=== PATIENT | male | born 1965 | race Caucasian/White ===

== ENCOUNTER 2018-01-31 15:51 | Emergency (ER) | payer BC, OTHER ==
[~2018-01-31] VITALS: Ht 175.3 cm; Wt 131.5 kg
[2018-01-31] MEDS ORDERED: LACTATED RINGERS 1,000 ML IV ONE (18:20)
[2018-01-31] MEDS ORDERED: fentaNYL INJECTION 100 MCG/2 ML AMP IVP ONE (18:30)
[2018-01-31] MEDS ORDERED: RT-ALBUTEROL/IPRATROPIUM 3 ML (DUONEB) VIAL INH ONE (18:30)
[2018-01-31 18:32] LABS: BASOPHILS % (AUTO) 0 % (0-10); EOSINOPHILS # (AUTO) 0.1 10^3/uL (0.0-0.3); EOSINOPHILS % (AUTO) 1 % (0-10); HEMATOCRIT 43 % (40-54); LYMPHOCYTES # (AUTO) 0.9 X 10^3 (1.0-4.0); LYMPHOCYTES % (AUTO) 11 % (12-44); MEAN CORPUSCULAR HEMOGLOBIN 30 PG (25-34); MEAN CORPUSCULAR HGB CONC 35 G/DL (32-36); MEAN CORPUSCULAR VOLUME 86 FL (80-99); MEAN PLATELET VOLUME 12.6 FL (7.4-10.4); MONOCYTES # (AUTO) 1.4 X 10^3 (0.0-1.0); MONOCYTES % (AUTO) 19 % (0-12); NEUTROPHILS # (AUTO) 5.3 X 10^3 (1.8-7.8); NEUTROPHILS % (AUTO) 69 % (42-75); PLATELET COUNT 151 10^3/uL (130-400); RED BLOOD COUNT 5.05 10^6/uL (4.35-5.85); RED CELL DISTRIBUTION WIDTH 13.5 % (10.0-14.5); WHITE BLOOD COUNT 7.7 10^3/uL (4.3-11.0)
[2018-01-31 18:46] LABS: ALANINE AMINOTRANSFERASE 38 U/L (0-55); ALBUMIN 4.5 GM/DL (3.2-4.5); ALKALINE PHOSPHATASE 59 U/L (40-136); BILIRUBIN,TOTAL 1.2 MG/DL (0.1-1.0); BUN/CREATININE RATIO 12; CALCIUM 8.8 MG/DL (8.5-10.1); CARBON DIOXIDE 26 MMOL/L (21-32); CHLORIDE 98 MMOL/L (98-107); CREATININE SERUM 0.75 MG/DL (0.60-1.30); GFR ESTIMATED > 60; GLUCOSE 106 MG/DL (70-105); LIPASE 27 U/L (8-78); POTASSIUM 3.7 MMOL/L (3.6-5.0); SODIUM 136 MMOL/L (135-145); TOTAL PROTEIN 7.1 GM/DL (6.4-8.2)
--- NOTE | 2018-01-31 19:03 | ED Abdominal Pain ---
General Chief Complaint: Chest Wall/Rib Pain Stated Complaint: ABD PAIN Nursing Triage Note: PT WAS SENT TO ED FROM [facility] BY EMS WITH C/O LUQ/CHEST WALL PAIN. HE REPORTS COUGH/COLD FLU SYMPTOMS FOR APPROX 1 WEEK. HE REPORTS PAIN STARTED AFTER COUGHING. PAIN IS WORSE WITH MOVEMENT. PT WAS GIVEN 324 MG ASA PER URGENT CARE. Sepsis Screen: No Definite Risk Source of Information: Patient Exam Limitations: No Limitations History of Present Illness Date Seen by Provider: Jan 31, 2018 Time Seen by Provider: 18:30 Initial Comments Patient presents to the ER by private conveyance from urgent care with a chief complaint he is having some left upper quadrant/chest wall pain. He says he has had a cough and cold for last week or 2 and thought he was getting over that and he thought maybe he pulled a muscle but the pain was very severe. He has not taken anything for it. They russell some lab at urgent care but he doesn't know if they didn't anything with it and they did an EKG and told him it was okay but he should go to the ER for further evaluation. He has no known coronary artery disease. He does not take any medications. Does not have a history of COPD. He is not feeling any wheezing or shortness of breath nor fevers chills nausea or vomiting. He's had no diarrhea. He says his pulled muscle similar to this before and felt in similar place is however never this severe. He says the pain is made worse by changing position. Allergies and Home Medications Allergies Coded Allergies: Penicillins (Unverified Allergy, Unknown, 01/31/18) Sulfa (Sulfonamide Antibiotics) (Verified Allergy, Unknown, 01/31/18) erythromycin base (Verified Allergy, Unknown, 01/31/18) Patient Home Medication List Home Medication List Reviewed: Yes Review of Systems Constitutional: No chills, No diaphoresis, No fever, No malaise EENTM: No Blurred Vision, No Double Vision Respiratory: Cough, Shortness of Air; Denies Wheezing Cardiovascular: See HPI, Chest Pain; Denies Edema, Denies Palpitations, Denies Syncope Gastrointestinal: See HPI; Denies Abdomen Distended; Abdominal Pain; Denies Constipated, Denies Diarrhea, Denies Difficulty Swallowing, Denies Nausea Genitourinary: Denies Burning, Denies Discharge Musculoskeletal: No back pain, No joint pain Skin: No pruritus, No rash Psychiatric/Neurological: Denies Headache, Denies Numbness, Denies Paresthesia Past Aragakh-Axtaws-Dlupsp Hx Patient Social History Alcohol Use: Denies Use Recreational Drug Use: No Smoking Status: Never a Smoker 2nd Hand Smoke Exposure: No Recent Foreign Travel: No Contact w/Someone Who Travel: No Recent Infectious Disease Expo: No Seasonal Allergies Seasonal Allergies: No Past Medical History Surgeries: Yes Adenoidectomy, Orthopedic, Tonsillectomy Physical Exam Vital Signs Vital Signs - First Documented 01/31/18 16:00 Temp 98.4 Pulse 77 Resp 8 B/P (MAP) 184/121 (142) Pulse Ox 97 O2 Delivery Room Air Capillary Refill : Less Than 3 Seconds General Appearance: WD/WN, no apparent distress HEENT: PERRL/EOMI, normal ENT inspection, TMs normal, pharynx normal Neck: non-tender, full range of motion, normal inspection Respiratory: no respiratory distress, no accessory muscle use, decreased breath sounds, wheezing (scant bilateral), other (left lower costal margin anteriorly is exquisitely tender to palpation) Cardiovascular: normal peripheral pulses, regular rate, rhythm, no edema Peripheral Pulses: 2+ Radial Pulses (R), 2+ Radial Pulses (L) Gastrointestinal: normal bowel sounds, soft, guarding (voluntary); No rebound; tenderness (left upper quadrant), other (negative for Thompson sign or McBurney's point tenderness) Extremities: normal range of motion, non-tender, normal capillary refill Neurologic/Psychiatric: alert, normal mood/affect, oriented x 3 Skin: normal color, warm/dry, other (small red dear tick anterior right axilla) Progress/Results/Core Measures Lab Results Laboratory Tests Test 01/31/18 16:00 Range/Units White Blood Count 7.7 4.3-11.0 10^3/uL Red Blood Count 5.05 4.35-5.85 10^6/uL Hemoglobin 15.0 13.3-17.7 G/DL Hematocrit 43 40-54 % Mean Corpuscular Volume 86 80-99 FL Mean Corpuscular Hemoglobin 30 25-34 PG Mean Corpuscular Hemoglobin Concent 35 32-36 G/DL Red Cell Distribution Width 13.5 10.0-14.5 % Platelet Count 151 130-400 10^3/uL Mean Platelet Volume 12.6 H 7.4-10.4 FL Neutrophils (%) (Auto) 69 42-75 % Lymphocytes (%) (Auto) 11 L 12-44 % Monocytes (%) (Auto) 19 H 0-12 % Eosinophils (%) (Auto) 1 0-10 % Basophils (%) (Auto) 0 0-10 % Neutrophils # (Auto) 5.3 1.8-7.8 X 10^3 Lymphocytes # (Auto) 0.9 L 1.0-4.0 X 10^3 Monocytes # (Auto) 1.4 H 0.0-1.0 X 10^3 Eosinophils # (Auto) 0.1 0.0-0.3 10^3/uL Basophils # (Auto) 0.0 0.0-0.1 10^3/uL Neutrophils % (Manual) 68 % Lymphocytes % (Manual) 7 % Monocytes % (Manual) 9 % Eosinophils % (Manual) 1 % Basophils % (Manual) 0 % Band Neutrophils 6 % Reactive Lymphocytes 9 % Blood Morphology Comment NORMAL Sodium Level 136 135-145 MMOL/L Potassium Level 3.7 3.6-5.0 MMOL/L Chloride Level 98 98-107 MMOL/L Carbon Dioxide Level 26 21-32 MMOL/L Anion Gap 12 5-14 MMOL/L Blood Urea Nitrogen 9 7-18 MG/DL Creatinine 0.75 0.60-1.30 MG/DL Estimat Glomerular Filtration Rate > 60 BUN/Creatinine Ratio 12 Glucose Level 106 H 70-105 MG/DL Calcium Level 8.8 8.5-10.1 MG/DL Total Bilirubin 1.2 H 0.1-1.0 MG/DL Aspartate Amino Transf (AST/SGOT) 24 5-34 U/L Alanine Aminotransferase (ALT/SGPT) 38 0-55 U/L Alkaline Phosphatase 59 40-136 U/L Troponin I < 0.30 <0.30 NG/ML Total Protein 7.1 6.4-8.2 GM/DL Albumin 4.5 3.2-4.5 GM/DL Lipase 27 8-78 U/L My Orders Orders - LIVE COLLIER Ct Abdomen/Pelvis W (01/31/18 18:20) Saline Lock/Iv-Start (01/31/18 18:20) Cbc With Automated Diff (01/31/18 18:20) Comprehensive Metabolic Panel (01/31/18 18:20) Lipase (01/31/18 18:20) Troponin I (01/31/18 18:20) Albuterol/Ipra Inhalation Soln (Duoneb I (01/31/18 18:30) Lactated Ringers (Lr 1000 Ml Iv Solution (01/31/18 18:20) Svn Small Volume Nebulizer (01/31/18 18:20) Fentanyl Injection (Sublimaze Injection (01/31/18 18:30) Continuous Ekg Monitoring (01/31/18 18:22) Ekg Tracing (01/31/18 18:22) Manual Differential (01/31/18 16:00) Iohexol Injection (Omnipaque 350 Mg/Ml 1 (01/31/18 19:15) Sodium Chloride Flush (Catheter Flush Sy (01/31/18 19:15) Ns (Ivpb) (Sodium Chloride 0.9%) (01/31/18 19:15) Pharmacy Communication (Pharmacy Communi (01/31/18 19:05) Ketorolac Injection (Toradol Injection) (01/31/18 19:30) Chest 1 View, Ap/Pa Only (01/31/18 20:12) Medications Given in ED Current Medications Medications Dose Ordered Sig/Jovani Route Start Time Stop Time Status Last Admin Dose Admin Albuterol/ Ipratropium 3 ml ONCE ONCE INH 01/31/18 18:30 01/31/18 18:31 DC 01/31/18 18:37 3 ML Fentanyl Citrate 50 mcg ONCE ONCE IVP 01/31/18 18:30 01/31/18 18:31 DC 01/31/18 18:30 50 MCG Iohexol 100 ml ONCE ONCE IV 01/31/18 19:15 01/31/18 19:16 DC 01/31/18 19:28 100 ML Ketorolac Tromethamine 15 mg ONCE ONCE IVP 01/31/18 19:30 01/31/18 19:31 DC 01/31/18 19:55 15 MG Lactated Ringer's 1,000 ml @ 0 mls/hr Q0M ONCE IV 01/31/18 18:20 01/31/18 18:23 DC 01/31/18 18:30 0 MLS/HR Sodium Chloride 10 ml NEEDED PRN IV 4/29/18 19:15 01/31/18 21:55 DC 01/31/18 19:29 10 ML Sodium Chloride 250 ml ONCE ONCE IV 01/31/18 19:15 01/31/18 19:16 DC 01/31/18 19:28 80 ML Vital Signs/I&O 01/31/18 01/31/18 01/31/18 16:00 18:38 21:50 Temp 98.4 98.4 Pulse 77 86 Resp 8 16 B/P (MAP) 184/121 (142) 126/83 (142) Pulse Ox 97 93 96 O2 Delivery Room Air Room Air Room Air Blood Pressure Mean: 142 Progress Note : Time: 19:08 Progress Note Patient's pain seems to be abdominal wall located versus chest wall. However because he said tender cannot exclude an intra-abdominal process. We'll obtain chest x-ray repeat an EKG and a CT of the abdomen to rule out intra-abdominal pathology. Diverticulitis, possible. He did have a bowel movement today that was normal formed so obstruction is less likely. 5: Left voicemail with [facility] 1999: Left voicemail with [facility] 2015: SUSAN from [facility] called back and we will page Dr. Gonzales, internal medicine 2024: Dr. Gonzales from [facility] called back and says they do not have interventional radiology on-call tonight otherwise he would be happy to take the patient. 2026: Called [facility] to ask if they have interventional radiology available tonight. They will call me back. 2029: [facility] has no IR 2030: Cory from [facility] tester electronic scale 2049: Dr Harris, IM: Ok to accept the PT. Initial ECG Impression Date: Jan 31, 2018 Initial ECG Impression Time: 14:54 Initial ECG Rate: 83 Initial ECG Rhythm: Normal Sinus Initial ECG Intervals: Normal Initial ECG Impression: Normal, Nonspecific Changes (LVH) Initial ECG Comparisson: No Previous ECG Available Comment Evidence for left ventricular hypertrophy but no significant ST-T wave elevation or depression. The minimal elevation in anterior leads is more due to early re-polarization phenomena. EKG : EKG Time: 18:32 Rate: 82 Rhythm: Normal Sinus Intervals: Normal ECG Comparisson: Unchanged ECG Impression: Normal, Nonspecific Changes Comment No T-wave elevation or depression significant. There is minimal early repolarization pattern seen in the anterior leads. Left ventricular hypertrophy evident. Diagonstic Imaging: Xray Plain Films/CT/US/NM/MRI: chest (1v) Comments NAME: VERONICA MAZARIEGOS [facility] REC#: [id number] PHYSICIAN: LIVE COLLIER MD CC: PHIL COBB MD; LIVE COLLIER Page 1 of 1 RADIOLOGY REPORT VIA [place], [place] CC: PHIL COBB MD; LIVE COLLIER Page 1 of 1 RADIOLOGY REPORT NAME: VERONICA MAZARIEGOS [facility] REC#: [id number] PT STATUS: REG ER : 1965 PHYSICIAN: LIVE COLLIER MD ADMIT DATE: 01/31/18/ER Signed Date of Exam: 01/31/18 CHEST 1 VIEW, AP/PA ONLY INDICATION: Shortness of breath. FINDINGS: There is cardiomegaly. Lungs are clear. There is no pleural effusion or pneumothorax. Mediastinum is unremarkable. IMPRESSION: No acute cardiopulmonary abnormality. Cardiomegaly. Dictated by: Dictated on workstation # [id number] Dict: 01/31/182024 Trans: 01/31/182027 Interpreted by: PHIL COBB MD Electronically signed by: PHIL COBB MD 01/31/182027 Reviewed: Reviewed by Me Diagonstic Imaging: CT Plain Films/CT/US/NM/MRI: abdomen, pelvis Comments %(RAD)RES..mtdd.print.filter("cj")VIA [facility] %(RAD)RES..mtdd.print.filter("cj")[place], [place] NAME: VERONICA MAZARIEGOS [facility] REC#: [id number] PT STATUS: REG ER : 1965 PHYSICIAN: LIVE COLLIER MD ADMIT DATE: 01/31/18/ER Draft Date of Exam:01/31/18 CT ABDOMEN/PELVIS W PROCEDURE: CT abdomen and pelvis with contrast. TECHNIQUE: Multiple contiguous axial images were obtained through the abdomen and pelvis after administration of intravenous contrast. INDICATION: Left upper quadrant pain. FINDINGS: The heart size is normal. There is minimal scarring in the left lung base. There is fatty infiltration of the liver. Gallbladder is unremarkable. There is no biliary ductal dilatation. Spleen is normal. The pancreas, adrenal glands and kidneys are unremarkable. The abdominal aorta is nonaneurysmal. The appendix is normal. Bowel gas pattern is nonspecific. Bladder is normal. There is no pelvic mass or adenopathy. There is a large left rectus sheath hematoma with active extravasation. The osseous structures are unremarkable. IMPRESSION: 1. Large left rectus sheath hematoma with active extravasation. Findings conveyed directly to Dr. Collier in the ER. 2. No othe Oacute abnormality in the abdomen or pelvis. Dictated on workstation # [id number] Dict: 01/31/181933 Trans: 01/31/181946 PJE [id number] Interpreted by: PHIL COBB MD Electronically signed by: Reviewed: Reviewed by Me, Discussed w/Radiologist Departure Impression Primary Impression: Rectus sheath hematoma Qualified Codes: S30.1XXA - Contusion of abdominal wall, initial encounter Additional Impression: Bronchitis Disposition: XFER SHT-TRM HOSP Condition: Stable Transfer Time Spoke to Accepting Phy: 20:50 Transfer Progress Notes [facility] 2030: Spoke with Cory triage nurse. 2049: Spoke with Dr. Harris, internal medicine except the patient. 2100: Room number [id number] assigned. [facility] dispatched and balance. 2149 [facility] took the patient to [facility]. Transfer Time: 21:50 Transfer Facility: [facility] Method of Transfer: EMS (als) Departure-Patient Inst. Referrals: NO,LOCAL PHYSICIAN (PCP/Family) Primary Care Physician LIVE COLLIER Jan 31, 2018 19:03
[2018-01-31] MEDS ORDERED: IOHEXOL 350 MG/ML 100 ML (OMNIPAQUE 350) VIAL IV ONE (19:15)
[2018-01-31] MEDS ORDERED: NS 250 ML (IVPB) BAG IV ONE (19:15)
[2018-01-31] MEDS ORDERED: CATHETER FLUSH 10 ML SYR IV PRN (19:15)
[2018-01-31] MEDS ORDERED: KETOROLAC 30 MG/ML VIAL IVP ONE (19:30)
--- NOTE | 2018-01-31 19:47 | Diagnostic Imaging Report ---
PROCEDURE: CT abdomen and pelvis with contrast. TECHNIQUE: Multiple contiguous axial images were obtained through the abdomen and pelvis after administration of intravenous contrast. INDICATION: Left upper quadrant pain. FINDINGS: The heart size is normal. There is minimal scarring in the left lung base. There is fatty infiltration of the liver. Gallbladder is unremarkable. There is no biliary ductal dilatation. Spleen is normal. The pancreas, adrenal glands and kidneys are unremarkable. The abdominal aorta is nonaneurysmal. The appendix is normal. Bowel gas pattern is nonspecific. Bladder is normal. There is no pelvic mass or adenopathy. There is a large left rectus sheath hematoma with active extravasation. The osseous structures are unremarkable. IMPRESSION: 1. Large left rectus sheath hematoma with active extravasation. Findings conveyed directly to Dr. Collier in the ER. 2. No other acute abnormality in the abdomen or pelvis. Dictated by: Dictated on workstation # [id number]
[2018-01-31 20:09] LABS: BAND NEUTROPHILS 6 %; BASOPHILS % (MANUAL) 0 %; EOSINOPHILS % (MANUAL) 1 %; LYMPHOCYTES % (MANUAL) 7 %; MONOCYTES % (MANUAL) 9 %; NEUTROPHILS % (MANUAL) 68 %; REACTIVE LYMPHOCYTES 9 %
[2018-01-31 20:10] LABS: RBC MORPH NORMAL
--- NOTE | 2018-01-31 20:28 | Diagnostic Imaging Report ---
INDICATION: Shortness of breath. FINDINGS: There is cardiomegaly. Lungs are clear. There is no pleural effusion or pneumothorax. Mediastinum is unremarkable. IMPRESSION: No acute cardiopulmonary abnormality. Cardiomegaly. Dictated by: Dictated on workstation # [id number]
[2018-01-31 21:50] VITALS: BP 126/83
== END 2018-01-31 21:52 | disposition short-term general hospital (02) ==
LOC: EDUNIT# 15:51 → ER 15:53
DX: S30.1XXA Contusion of abdominal wall, initial encounter (principal); J40 Bronchitis, not specified as acute or chronic; Z88.0 Allergy status to penicillin; Z88.2 Allergy status to sulfonamides; Z88.1 Allergy status to other antibiotic agents; Z90.89 Acquired absence of other organs; X50.0XXA Overexertion from strenuous movement or load, initial encounter
CPT/HCPCS: 36415; 71045; 74177; 80053; 83690; 84484; 85007; 85027; 93005; 94640; 96361; 96374; 96375

== ENCOUNTER 2018-02-02 16:07 | Emergency (ER) | payer BC ==
[~2018-02-02] VITALS: Ht 175.3 cm; Wt 132.4 kg
[2018-02-02] MEDS ORDERED: RT-ALBUTEROL/IPRATROPIUM 3 ML (DUONEB) VIAL INH ONE (17:00)
[2018-02-02] MEDS ORDERED: fentaNYL INJECTION 100 MCG/2 ML AMP IVP ONE (17:00)
[2018-02-02 17:08] LABS: BASOPHILS % (AUTO) 0 % (0-10); EOSINOPHILS % (AUTO) 0 % (0-10); HEMATOCRIT 31 % (40-54); HEMOGLOBIN 10.5 G/DL (13.3-17.7); LYMPHOCYTES # (AUTO) 0.8 X 10^3 (1.0-4.0); LYMPHOCYTES % (AUTO) 8 % (12-44); MEAN CORPUSCULAR HEMOGLOBIN 30 PG (25-34); MEAN CORPUSCULAR HGB CONC 34 G/DL (32-36); MEAN CORPUSCULAR VOLUME 87 FL (80-99); MONOCYTES # (AUTO) 1.6 X 10^3 (0.0-1.0); MONOCYTES % (AUTO) 16 % (0-12); NEUTROPHILS # (AUTO) 7.4 X 10^3 (1.8-7.8); NEUTROPHILS % (AUTO) 75 % (42-75); PLATELET COUNT 159 10^3/uL (130-400); RED BLOOD COUNT 3.55 10^6/uL (4.35-5.85); RED CELL DISTRIBUTION WIDTH 13.7 % (10.0-14.5); WHITE BLOOD COUNT 9.9 10^3/uL (4.3-11.0)
[2018-02-02 17:21] LABS: ALANINE AMINOTRANSFERASE 32 U/L (0-55); ALBUMIN 4.3 GM/DL (3.2-4.5); ALKALINE PHOSPHATASE 49 U/L (40-136); BILIRUBIN,TOTAL 1.1 MG/DL (0.1-1.0); BUN/CREATININE RATIO 17; CARBON DIOXIDE 25 MMOL/L (21-32); CHLORIDE 97 MMOL/L (98-107); GFR ESTIMATED > 60; GLUCOSE 121 MG/DL (70-105); POTASSIUM 3.7 MMOL/L (3.6-5.0); SODIUM 133 MMOL/L (135-145); TOTAL PROTEIN 6.9 GM/DL (6.4-8.2)
--- NOTE | 2018-02-02 17:36 | Diagnostic Imaging Report ---
INDICATION: Shortness of air and severe cough. TIME OF EXAM: 5:45 PM Correlation is made with prior study from 01/31/2018. FINDINGS: Heart size is stable. There has been development of some patchy areas of increased parenchymal density in both bases, suggestive of atelectasis or infiltrate. No effusion is seen. No pneumothorax is identified. IMPRESSION: Bibasilar pulmonary infiltrates or atelectasis, new since examination from 2 days earlier. Dictated by: Dictated on workstation # [id number]
[2018-02-02] MEDS ORDERED: NS IV 1000 ML 1,000 ML IV ONE (18:06)
[2018-02-02] MEDS ORDERED: RX-ALBUTEROL INHALER (PROAIR) 8 GM IH STA (18:09)
[2018-02-02] MEDS ORDERED: LEVOFLOXACIN 750 MG/150 ML IV 150 ML IV ONE (18:15)
--- NOTE | 2018-02-02 18:28 | ED General ---
General Chief Complaint: Respiratory Problems Stated Complaint: COUGH/COLD SYMPTOMS Nursing Triage Note: PT CO OF SOA, SEVERE COUGH, HAS BEEN RELEASED FROM [facility] AFTER ABD SURG YESTERDAY. PT DIAPHORETIC. HAS HORRIBLE COUGHING FITS Nursing Sepsis Screen: No Definite Risk Source of Information: Patient, Old Records Exam Limitations: No Limitations History of Present Illness Date Seen by Provider: February 02, 2018 Time Seen by Provider: 16:46 Initial Comments This 52-year-old gentleman presents to the emergency room with complaints of persistent cough and fever. He was seen here January 31 for cough and pain and was found at that time to have a rectus sheath hematoma. He was sent to [facility] where he had an arterial embolism performed to control the bleeding. He returned home today and developed fever. He then went to an urgent care facility and was referred to the ER. He reports persistent cough and some shortness of breath. He is afebrile on assessment. Allergies and Home Medications Allergies Coded Allergies: Penicillins (Unverified Allergy, Unknown, 01/31/18) Sulfa (Sulfonamide Antibiotics) (Verified Allergy, Unknown, 01/31/18) erythromycin base (Verified Allergy, Unknown, 01/31/18) Home Medications Levofloxacin 750 Mg Tablet, 750 MG PO DAILY Prescribed by: ALEX FISHER on 02/02/18 4735 Patient Home Medication List Home Medication List Reviewed: Yes Review of Systems Constitutional: see HPI EENTM: no symptoms reported Respiratory: see HPI Cardiovascular: see HPI Gastrointestinal: see HPI Genitourinary: no symptoms reported Musculoskeletal: see HPI Skin: no symptoms reported Psychiatric/Neurological: No Symptoms Reported Hematologic/Lymphatic: No Symptoms Reported Immunological/Allergic: no symptoms reported Past Xonhdvc-Mojuci-Wauoph Hx Patient Social History Alcohol Use: Denies Use Recreational Drug Use: No Smoking Status: Never a Smoker 2nd Hand Smoke Exposure: No Recent Foreign Travel: No Contact w/Someone Who Travel: No Recent Infectious Disease Expo: No Recent Hopitalizations: Yes (JAMIE) Physical Abuse: No Sexual Abuse: No Seasonal Allergies Seasonal Allergies: No Past Medical History Surgeries: Yes Adenoidectomy, Orthopedic, Tonsillectomy Respiratory: Yes Chronic Bronchitis Cardiac: No Neurological: No Genitourinary: No Gastrointestinal: No Musculoskeletal: No Endocrine: No HEENT: No Cancer: No Nursing Suicide Risk Score: 0 Integumentary: No Physical Exam Vital Signs Vital Signs - First Documented 02/02/18 02/02/18 16:20 17:08 Temp 99.1 Pulse 107 Resp 24 B/P (MAP) 218/109 (145) Pulse Ox 93 O2 Delivery Room Air Capillary Refill : Less Than 3 Seconds General Appearance: WD/WN, Mild Distress, Obese HEENT: PERRL/EOMI, Normal ENT Inspection, Pharynx Normal Neck: Normal Inspection Respiratory: No Accessory Muscle Use, No Respiratory Distress, Decreased Breath Sounds, Wheezing Cardiovascular: No Edema, No Murmur, Tachycardia Gastrointestinal: Normal Bowel Sounds, Soft Extremity: Normal Inspection, No Pedal Edema Neurologic/Psychiatric: Alert, Oriented x3, No Motor/Sensory Deficits, Normal 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/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, 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 Norm as Tested Skin: Normal Color, Warm/Dry Focused Exam Lactate Level 02/02/18 16:40: Lactic Acid Level 1.73 Lactic Acid Level Progress/Results/Core Measures Suspected Sepsis Recent Fever Within 48 Hours: No Infection Criteria Present: None New/Unexplained Altered Menta: No Sepsis Screen: No Definite Risk SIRS Temperature:99.1 Pulse: 107 Respiratory Rate: 24 Laboratory Tests 02/02/18 16:40: White Blood Count 9.9 Blood Pressure 218 /109 Mean: 145 02/02/18 16:40: Lactic Acid Level 1.73 Laboratory Tests 02/02/18 16:40: Creatinine 0.70, Platelet Count 159, Total Bilirubin 1.1H Results/Orders Lab Results Laboratory Tests Test 02/02/18 16:40 Range/Units White Blood Count 9.9 4.3-11.0 10^3/uL Red Blood Count 3.55 L 4.35-5.85 10^6/uL Hemoglobin 10.5 #L 13.3-17.7 G/DL Hematocrit 31 L 40-54 % Mean Corpuscular Volume 87 80-99 FL Mean Corpuscular Hemoglobin 30 25-34 PG Mean Corpuscular Hemoglobin Concent 34 32-36 G/DL Red Cell Distribution Width 13.7 10.0-14.5 % Platelet Count 159 130-400 10^3/uL Mean Platelet Volume 12.0 H 7.4-10.4 FL Neutrophils (%) (Auto) 75 42-75 % Lymphocytes (%) (Auto) 8 L 12-44 % Monocytes (%) (Auto) 16 H 0-12 % Eosinophils (%) (Auto) 0 0-10 % Basophils (%) (Auto) 0 0-10 % Neutrophils # (Auto) 7.4 1.8-7.8 X 10^3 Lymphocytes # (Auto) 0.8 L 1.0-4.0 X 10^3 Monocytes # (Auto) 1.6 H 0.0-1.0 X 10^3 Eosinophils # (Auto) 0.0 0.0-0.3 10^3/uL Basophils # (Auto) 0.0 0.0-0.1 10^3/uL Sodium Level 133 L 135-145 MMOL/L Potassium Level 3.7 3.6-5.0 MMOL/L Chloride Level 97 L 98-107 MMOL/L Carbon Dioxide Level 25 21-32 MMOL/L Anion Gap 11 5-14 MMOL/L Blood Urea Nitrogen 12 7-18 MG/DL Creatinine 0.70 0.60-1.30 MG/DL Estimat Glomerular Filtration Rate > 60 BUN/Creatinine Ratio 17 Glucose Level 121 H 70-105 MG/DL Lactic Acid Level 1.73 0.50-2.00 MMOL/L Calcium Level 9.0 8.5-10.1 MG/DL Total Bilirubin 1.1 H 0.1-1.0 MG/DL Aspartate Amino Transf (AST/SGOT) 32 5-34 U/L Alanine Aminotransferase (ALT/SGPT) 32 0-55 U/L Alkaline Phosphatase 49 40-136 U/L C-Reactive Protein High Sensitivity 13.19 H 0.00-0.50 MG/DL Total Protein 6.9 6.4-8.2 GM/DL Albumin 4.3 3.2-4.5 GM/DL Micro Results Microbiology 02/02/18 Influenza Types A,B Antigen (PIYUSH) - Final, Complete My Orders Orders - ALEX SUTHERLAND MD Cbc With Automated Diff (02/02/18 16:55) Comprehensive Metabolic Panel (02/02/18 16:55) Hs C Reactive Protein (02/02/18 16:55) Influenza A And B Antigens (02/02/18 16:55) Chest Pa/Lat (2 View) (02/02/18 16:55) Saline Lock/Iv-Start (02/02/18 16:55) Albuterol/Ipra Inhalation Soln (Duoneb I (02/02/18 17:00) Fentanyl Injection (Sublimaze Injection (02/02/18 17:00) Blood Culture (02/02/18 17:46) Lactic Acid Analyzer (02/02/18 17:46) Ns Iv 1000 Ml (Sodium Chloride 0.9%) (02/02/18 18:06) Levofloxacin 750 Mg/150 Ml Iv (Levaquin (02/02/18 18:15) Rx-Albuterol Inhaler (Rx-Proair) (02/02/18 18:09) Rt Request For Service (Other) (02/02/18 19:07) Medications Given in ED Vital Signs/I&O 02/02/18 19:22 Pulse 100 Resp 24 B/P (MAP) 165/88 Pulse Ox 99 O2 Delivery Room Air 02/03/18 00:00 Intake Total 1150 ml Balance 1150 ml Capillary Refill : Less Than 3 Seconds Blood Pressure Mean: 145 Progress Note : Progress Note Patient had not been taking his tramadol for pain. He did request treatment for his abdominal wall pain and was given fentanyl. A DuoNeb treatment was also administered. He felt significantly improved with these therapies. Chest x-ray did demonstrate pneumonia. Patient was not hypoxic. He does not smoke and has no underlying respiratory illnesses. I discussed options with him and he would really like to try treatment on an outpatient basis. He is receiving Levaquin by IV route along with a liter of IV fluids. Respiratory therapy provided education on incentive spirometry and inhaler use. He commits to returning to the ER if symptoms worsen. Blood cultures were drawn prior to administration of antibiotics. Albuterol inhaler was dispensed at dismissal. Diagnostic Imaging Diagonstic Imaging: Xray Plain Films/CT/US/NM/MRI: chest Comments Chest x-ray viewed by me and report reviewed. See report below: NAME: VERONICA MAZARIEGOS [facility] REC#: [id number] PT STATUS: REG ER : 1965 PHYSICIAN: ALEX SUTHERLAND MD ADMIT DATE: 02/02/18/ER Draft Date of Exam:02/02/18 CHEST PA/LAT (2 VIEW) INDICATION: Shortness of air and severe cough. TIME OF EXAM: 5:45 PM Correlation is made with prior study from 01/31/2018. FINDINGS: Heart size is stable. There has been development of some patchy areas of increased parenchymal density in both bases, suggestive of atelectasis or infiltrate. No effusion is seen. No pneumothorax is identified. IMPRESSION: Bibasilar pulmonary infiltrates or atelectasis, new since examination from 2 days earlier. Dictated on workstation # [id number] Dict: 02/02/18 1733 Trans: 02/02/18 1735 [facility] [id number] Interpreted by: STANLEY MAYO MD Departure Impression Primary Impression: Bilateral pneumonia Qualified Codes: J18.1 - Lobar pneumonia, unspecified organism Additional Impressions: Rectus sheath hematoma Qualified Codes: S30.1XXD - Contusion of abdominal wall, subsequent encounter Bronchospasm Disposition: HOME, SELF-CARE Condition: Improved Departure-Patient Inst. Decision time for Depature: 18:32 Referrals: NO,LOCAL PHYSICIAN (PCP/Family) Primary Care Physician Patient Instructions: Community-Acquired Pneumonia, Adult (DC) Add. Discharge Instructions: Complete the entire course of your antibiotics as prescribed. Start the prescription pills tomorrow. Use your inhaler 1-4 puffs every 4 hours as needed for shortness of air and wheezing. You may use the tramadol (Ultram) as prescribed for pain. Add Tylenol ( acetaminophen) up to 1000 mg every 6 hours as needed for additional pain relief. Use the incentive spirometer 10 times every hour while awake to exercise deep breathing. Return to the emergency room if you have worsening symptoms. Follow-up with your primary care provider soon as possible. All discharge instructions reviewed with patient and/or family. Voiced understanding. Scripts Levofloxacin (Levaquin) 750 Mg Tablet 750 MG PO DAILY, #6 TAB Prov: ALEX SUTHERLAND MD 02/02/18 ALEX SUTHERLAND MD February 02, 2018 18:28
[2018-02-02] MEDS ORDERED: LEVO750T9 PO (18:34)
[2018-02-02 19:22] VITALS: BP 165/88
[2018-02-03] MEDS ORDERED: KETO10TA PO (10:12)
[2018-02-03] MEDS ORDERED: BENZ-36 PO ×2 (10:12→13:36)
[2018-02-03] MEDS ORDERED: LEVO750T39 PO (13:36)
[2018-02-03] MEDS ORDERED: ASCO60LO9 PO (13:36)
[2018-02-03] MEDS ORDERED: TRAM50TA2 PO (13:36)
[2018-02-03] MEDS ORDERED: FLUT16SP22 NS (13:36)
[2018-02-03] MEDS ORDERED: BENZ1LOZ61 MM (13:36)
== END 2018-02-02 19:21 | disposition home or self-care (01) ==
LOC: EDUNIT# 16:07 → ER 16:11
DX: M79.81 Nontraumatic hematoma of soft tissue (principal); J18.1 Lobar pneumonia, unspecified organism; J98.01 Acute bronchospasm; Z88.0 Allergy status to penicillin; Z88.2 Allergy status to sulfonamides; Z88.1 Allergy status to other antibiotic agents; Z90.89 Acquired absence of other organs; Z98.890 Other specified postprocedural states
CPT/HCPCS: 36415; 71046; 80053; 83605; 85025; 86141; 87040; 87804; 94640; 94664; 96361; 96365; 96375

== ENCOUNTER 2018-02-03 09:40 | Inpatient (IN) | payer BC ==
[~2018-02-03] VITALS: Ht 175.3 cm; Wt 139.1 kg
[~2018-02-03 09:40] MED LIST: LEVO750T9 PO
[2018-02-03] MEDS ORDERED: NS IV 1000 ML 1,000 ML IV ONE (09:55)
[2018-02-03] MEDS ORDERED: LEVOFLOXACIN 750 MG/150 ML IV 150 ML IV ONE (10:00)
[2018-02-03] MEDS ORDERED: KETO10TA PO (10:12)
[2018-02-03] MEDS ORDERED: BENZ-36 PO ×2 (10:12→13:36)
[2018-02-03 10:28] LABS: BASOPHILS % (AUTO) 0 % (0-10); EOSINOPHILS % (AUTO) 0 % (0-10); HEMATOCRIT 33 % (40-54); HEMOGLOBIN 11.4 G/DL (13.3-17.7); LYMPHOCYTES # (AUTO) 0.8 X 10^3 (1.0-4.0); LYMPHOCYTES % (AUTO) 10 % (12-44); MEAN CORPUSCULAR HEMOGLOBIN 30 PG (25-34); MEAN CORPUSCULAR HGB CONC 34 G/DL (32-36); MEAN CORPUSCULAR VOLUME 87 FL (80-99); MEAN PLATELET VOLUME 11.7 FL (7.4-10.4); MONOCYTES % (AUTO) 13 % (0-12); NEUTROPHILS # (AUTO) 6.1 X 10^3 (1.8-7.8); NEUTROPHILS % (AUTO) 76 % (42-75); PLATELET COUNT 133 10^3/uL (130-400); RED BLOOD COUNT 3.82 10^6/uL (4.35-5.85); RED CELL DISTRIBUTION WIDTH 13.9 % (10.0-14.5)
--- NOTE | 2018-02-03 10:47 | Diagnostic Imaging Report ---
INDICATION: Pneumonia, cough. History of aneurysm rupture and repair. Compared with study 02/02/2018. Enlargement of the cardiac silhouette unchanged. Perihilar subsegmental atelectasis on the left unchanged. Interfissural pleural fluid as well as posterior sulcal pleural fluid on the left unchanged. No pneumothorax. Embolic coils project left paramedian retrosternal unchanged. IMPRESSION: A left-sided interfissural and posterior sulcal pleural fluid unchanged. Partial atelectasis may be slightly improved. No pneumothorax. No adverse development of substantial change from prior not apparent. Dictated by: Dictated on workstation # [id number]
[2018-02-03 10:49] LABS: CALCIUM 8.9 MG/DL (8.5-10.1); CHLORIDE 105 MMOL/L (98-107); POTASSIUM 4.1 MMOL/L (3.6-5.0); SODIUM 137 MMOL/L (135-145)
[2018-02-03 11:00] LABS: BUN/CREATININE RATIO 14; CARBON DIOXIDE 21 MMOL/L (21-32); CREATININE SERUM 0.65 MG/DL (0.60-1.30); GFR ESTIMATED > 60; GLUCOSE 130 MG/DL (70-105)
--- NOTE | 2018-02-03 11:00 | ED Respiratory ---
General Chief Complaint: Respiratory Problems Stated Complaint: DX WITH PNEUMONIA,STOMACH PRESSURE Nursing Triage Note: PT BACK TO ED TODAY WOULD LIKE TO BE ADMITTED FOR PNEM, STILL HAVING FEVER, SOA , COUGH AND PAIN. PT HAS EMBOLIZATION OF ARTERY IN ABD ON THURSDAY, PT HAS LARGE BRUISED AREAS ON ABD AND BACK L SIDE. PT PALE IN COLOR, DIAPHORETIC. PT CO OF WEAKNESS. Source: patient, old records Exam Limitations: no limitations History of Present Illness Date Seen by Provider: February 03, 2018 Time Seen by Provider: 09:41 Initial Comments This 52-year-old gentleman presents to the emergency room with complaints of abdominal and lower chest wall pain from a rectus sheath hematoma and symptoms of pneumonia that include diaphoresis, cough, shortness of air, and fatigue. Patient was seen in this ER yesterday. See note from yesterday for more information. He was found to have pneumonia at that time and was offered admission. He preferred to try treatment at home. He had been given a dose of Levaquin in the ER after blood cultures were drawn. He was trained on an inhaler and incentive spirometer. He returned home and did not do well. He reports he was extremely exhausted and stayed on the couch most of the time after returning home. Today he felt his symptoms were too severe to manage at home. His rectus sheath hematoma had been treated at [facility] with embolization. He returned home from [facility] yesterday. He noted a fever upon returning home and presented to urgent care. He was then referred to the ER where workup was pursued. He has been taking Ultram for pain and Tessalon Perles for cough suppression. He did not yet start the oral Levaquin. Allergies and Home Medications Allergies Coded Allergies: Penicillins (Unverified Allergy, Unknown, 01/31/18) Sulfa (Sulfonamide Antibiotics) (Verified Allergy, Unknown, 01/31/18) erythromycin base (Verified Allergy, Unknown, 01/31/18) Home Medications Ascorbic Acid 60 Mg Lozenge, 60 MG PO UD PRN for COUGH, (Reported) Benzocaine/Menthol 1 Each Lozenge, 1 KENYON MM UD PRN for COUGH, (Reported) Benzonatate 100 Mg Capsule, 100 MG PO TID PRN for COUGH, (Reported) Fluticasone Propionate 16 Gm [place].susp, 2 SPRAYS NS DAILY, (Reported) Levofloxacin 750 Mg Tablet, 750 MG PO DAILY, (Reported) 6 DAY SUPPLY FILLED 02-02-18 Tramadol HCl 50 Mg Tablet, 50 MG PO Q6H PRN for PAIN-MODERATE, (Reported) Patient Home Medication List Home Medication List Reviewed: Yes Review of Systems Constitutional: see HPI, diaphoresis EENTM: no symptoms reported Respiratory: see HPI Cardiovascular: no symptoms reported Gastrointestinal: no symptoms reported Genitourinary: no symptoms reported Musculoskeletal: see HPI Skin: see HPI Psychiatric/Neurological: No Symptoms Reported Hematologic/Lymphatic: No Symptoms Reported Past Rtvukbo-Pugotw-Sikevp Hx Patient Social History Alcohol Use: Denies Use Recreational Drug Use: No Smoking Status: Former Smoker 2nd Hand Smoke Exposure: No Recent Foreign Travel: No Contact w/Someone Who Travel: No Recent Infectious Disease Expo: No Recent Hopitalizations: Yes ([facility]) Physical Abuse: No Sexual Abuse: No Seasonal Allergies Seasonal Allergies: No Past Medical History Surgeries: Yes Adenoidectomy, Orthopedic, Tonsillectomy Respiratory: Yes Chronic Bronchitis Cardiac: No Neurological: No Genitourinary: No Gastrointestinal: No Musculoskeletal: Yes (rectus sheath hematoma) Endocrine: No HEENT: No Cancer: No Nursing Suicide Risk Score: 0 Integumentary: No Physical Exam Vital Signs Vital Signs - First Documented 02/03/18 09:48 Temp 99.9 Pulse 94 Resp 35 B/P (MAP) 165/103 (123) Pulse Ox 92 O2 Delivery Room Air Capillary Refill : Less Than 3 Seconds General Appearance: WD/WN, mild distress HEENT: PERRL/EOMI, normal ENT inspection Neck: normal inspection Respiratory: lungs clear, normal breath sounds, no respiratory distress, no accessory muscle use Cardiovascular: regular rate, rhythm, no edema Gastrointestinal: soft, tenderness (mild generalized) Extremities: normal inspection, no pedal edema Neurologic/Psychiatric: set up machinist II-XII nml as tested, no motor/sensory deficits, alert, normal mood/affect, oriented x 3 Skin: warm/dry, ecchymosis (over the left abdomen) Progress/Results/Core Measures Suspected Sepsis Recent Fever Within 48 Hours: Yes Infection Criteria Present: Documented Infection New/Unexplained Altered Menta: No Sepsis Screen: Possible Sepsis Risk SIRS Temperature:99.9 Pulse: 94 Respiratory Rate: 35 Laboratory Tests 02/03/18 10:20: White Blood Count 8.0 Blood Pressure 165 /103 Mean: 123 Laboratory Tests 02/03/18 10:20: Creatinine 0.65, Platelet Count 133 Results/Orders Lab Results Laboratory Tests Test 02/03/18 10:20 Range/Units White Blood Count 8.0 4.3-11.0 10^3/uL Red Blood Count 3.82 L 4.35-5.85 10^6/uL Hemoglobin 11.4 L 13.3-17.7 G/DL Hematocrit 33 L 40-54 % Mean Corpuscular Volume 87 80-99 FL Mean Corpuscular Hemoglobin 30 25-34 PG Mean Corpuscular Hemoglobin Concent 34 32-36 G/DL Red Cell Distribution Width 13.9 10.0-14.5 % Platelet Count 133 130-400 10^3/uL Mean Platelet Volume 11.7 H 7.4-10.4 FL Neutrophils (%) (Auto) 76 H 42-75 % Lymphocytes (%) (Auto) 10 L 12-44 % Monocytes (%) (Auto) 13 H 0-12 % Eosinophils (%) (Auto) 0 0-10 % Basophils (%) (Auto) 0 0-10 % Neutrophils # (Auto) 6.1 1.8-7.8 X 10^3 Lymphocytes # (Auto) 0.8 L 1.0-4.0 X 10^3 Monocytes # (Auto) 1.0 0.0-1.0 X 10^3 Eosinophils # (Auto) 0.0 0.0-0.3 10^3/uL Basophils # (Auto) 0.0 0.0-0.1 10^3/uL Sodium Level 137 135-145 MMOL/L Potassium Level 4.1 3.6-5.0 MMOL/L Chloride Level 105 98-107 MMOL/L Carbon Dioxide Level 21 21-32 MMOL/L Anion Gap 11 5-14 MMOL/L Blood Urea Nitrogen 9 7-18 MG/DL Creatinine 0.65 0.60-1.30 MG/DL Estimat Glomerular Filtration Rate > 60 BUN/Creatinine Ratio 14 Glucose Level 130 H 70-105 MG/DL Calcium Level 8.9 8.5-10.1 MG/DL C-Reactive Protein High Sensitivity 14.63 H 0.00-0.50 MG/DL My Orders Orders - ALEX SUTHERLAND MD Basic Metabolic Panel (02/03/18 09:55) Cbc With Automated Diff (02/03/18 09:55) Hs C Reactive Protein (02/03/18 09:55) Chest Pa/Lat (2 View) (02/03/18 09:55) Saline Lock/Iv-Start (02/03/18 09:55) Ns Iv 1000 Ml (Sodium Chloride 0.9%) (02/03/18 09:55) Levofloxacin 750 Mg/150 Ml Iv (Levaquin (02/03/18 10:00) Medications Given in ED Current Medications Medications Dose Ordered Sig/Jovani Route Start Time Stop Time Status Last Admin Dose Admin Levofloxacin/ Dextrose 150 ml @ 100 mls/hr ONCE ONCE IV 02/03/18 10:00 02/03/18 11:29 DC 02/03/18 10:25 100 MLS/HR Sodium Chloride 1,000 ml @ 0 mls/hr Q0M ONCE IV 02/03/18 09:55 02/03/18 09:57 DC 02/03/18 10:25 1,000 MLS/HR Vital Signs/I&O 02/03/18 09:48 Temp 99.9 Pulse 94 Resp 35 B/P (MAP) 165/103 (123) Pulse Ox 92 O2 Delivery Room Air Capillary Refill : Less Than 3 Seconds Blood Pressure Mean: 123 Progress Note : Progress Note His second dose of Levaquin was ordered in the ER. Chest x-ray showed no significant changes from prior. Wheezing seemed to be improved over exam from yesterday. Blood cultures were not drawn as patient had blood cultures drawn yesterday before antibiotics were started. Diagnostic Imaging Diagonstic Imaging: Xray Plain Films/CT/US/NM/MRI: chest Comments Chest x-ray viewed by me and compared with prior. Report reviewed. See report below: NAME: VERONICA MAZARIEGOS [facility] REC#: [id number] PT STATUS: REG ER : 1965 PHYSICIAN: ALEX SUTHERLAND MD ADMIT DATE: 02/03/18/ER Draft Date of Exam:02/03/18 CHEST PA/LAT (2 VIEW) INDICATION: Pneumonia, cough. History of aneurysm rupture and repair. Compared with study 02/02/2018. Enlargement of the cardiac silhouette unchanged. Perihilar subsegmental atelectasis on the left unchanged. Interfissural pleural fluid as well as posterior sulcal pleural fluid on the left unchanged. No pneumothorax. Embolic coils project left paramedian retrosternal unchanged. IMPRESSION: A left-sided interfissural and posterior sulcal pleural fluid unchanged. Partial atelectasis may be slightly improved. No pneumothorax. No adverse development of substantial change from prior not apparent. Dictated on workstation # [id number] Dict: 02/03/18 1036 Trans: 02/03/18 1047 [facility] [id number] Interpreted by: KENDRA CASPER Departure Communication (Admissions) Time/Spoke to Admitting Phy: 10:45 Dr. Guzman Impression Primary Impression: Pneumonia Qualified Codes: J18.1 - Lobar pneumonia, unspecified organism Additional Impression: Rectus sheath hematoma Qualified Codes: S30.1XXD - Contusion of abdominal wall, subsequent encounter Disposition: ADMITTED INPATIENT Condition: Improved Admissions Decision to Admit Reason: Admit from ER (General) Decision to Admit/Date: February 03, 2018 Time/Decision to Admit Time: 10:00 Departure-Patient Inst. Referrals: NO,LOCAL PHYSICIAN (PCP/Family) Primary Care Physician ALEX SUTHERLAND MD February 03, 2018 11:00
[2018-02-03 12:05] VITALS: BP 148/56
[2018-02-03] MEDS ORDERED: NS IV 1000 ML 1,000 ML ONE (12:39)
[2018-02-03] MEDS ORDERED: CATHETER FLUSH 10 ML SYR IV PRN (13:00)
[2018-02-03] MEDS ORDERED: fentaNYL INJECTION 100 MCG/2 ML AMP IV PRN (13:00)
[2018-02-03 13:16] VITALS: BP 164/77
[2018-02-03] MEDS ORDERED: TRAM50TA2 PO (13:36)
[2018-02-03] MEDS ORDERED: LEVO750T39 PO (13:36)
[2018-02-03] MEDS ORDERED: FLUT16SP22 NS (13:36)
[2018-02-03] MEDS ORDERED: ASCO60LO9 PO (13:36)
[2018-02-03] MEDS ORDERED: BENZ1LOZ61 MM (13:36)
--- NOTE | 2018-02-03 15:27 | History & Physical-Hospitalist ---
History of Present Illness HPI/Chief Complaint Pt is a 52yoCM with a PMH of recent rectus sheath hematoma that underwent embolization at [facility] on 02/01 who presented to the ER with CC of cough. His symptoms started on 01/28 with a sore throat and cough. His coughing worsened which is when he developed abdominal pain prompting him to seek evaluation in the ER where his hematoma was diagnosed. His cough never improved and he was not given antibiotics at [facility]. After being discharged on 02/02 he drove to the ER here for evaluation of his cough and was diagnosed with pneumonia. He was offered admission but elected to attempt going home instead. His symptoms worsened with cough and poor sleep so he returned to the ER and was admitted as he failed outpatient management. He denies any fevers but as been near multiple sick contacts with admission at . He has no history of lung disease. He has been using Nyquil and cough drops without improvement. Source: patient Exam Limitations: no limitations Date Seen 02/03/18 Time Seen by Provider: 15:21 Attending Physician Ezequiel Guzman MD PCP No,Local Physician Referring Physician Date of Admission February 03, 2018 at 10:55 Home Medications & Allergies Home Medications Reviewed patient Home Medication Reconciliation performed by pharmacy medication reconciliations security system technician and/or nursing. Patients Allergies have been reviewed. Allergies Allergies Coded Allergies Penicillins (Unverified Allergy, Unknown, 01/31/18) Sulfa (Sulfonamide Antibiotics) (Verified Allergy, Unknown, 01/31/18) erythromycin base (Verified Allergy, Unknown, 01/31/18) Past Rnbpcka-Nqhclh-Kowwtw Hx Past Med/Social Hx: Reviewed Nursing Past Med/Soc Hx Patient Social History Employed/Student: employed Alcohol Use: Denies Use Recreational Drug Use: No Smoking Status: Never a Smoker Type Used: Cigarettes 2nd Hand Smoke Exposure: No Physical Abuse Screen: No Sexual Abuse: No Recent Foreign Travel: No Contact w/other who traveled: No Recent Hopitalizations: Yes () Recent Infectious Disease Expo: No Seasonal Allergies Seasonal Allergies: No Past Medical History Surgeries: Adenoidectomy, Orthopedic, Tonsillectomy Currently Using CPAP: No Currently Using BIPAP: No Sexually Transmitted Disease: No HIV/AIDS: No Are Your Blood Sugars Over 250: No Did You Recieve Any Treatments: No Family History Reviewed Nursing Family Hx Heart Disease, Cancer, Hypertension Review of Systems Constitutional: No chills; fever ("low grade") EENTM: throat pain (scratchy); No blurred vision, No double vision, No nose congestion Respiratory: cough; No dyspnea on exertion; orthopnea; No phlegm; short of breath Cardiovascular: No chest pain, No edema, No palpitations Gastrointestinal: abdominal pain (with cough); No constipation, No diarrhea, No nausea, No vomiting Genitourinary: No dysuria, No frequency Musculoskeletal: No joint pain, No muscle pain Skin: No lesions, No rash Psychiatric/Neurological: Denies Headache, Denies Numbness, Denies Tingling All Other Systems Reviewed Negative Unless Noted: Yes (Negative excepted noted.) Physical Exam Physical Exam Vital Signs Vital Signs - First Documented 02/03/18 09:48 Temp 99.9 Pulse 94 Resp 35 B/P (MAP) 165/103 (123) Pulse Ox 92 O2 Delivery Room Air Capillary Refill : Less Than 3 Seconds General Appearance: No Apparent Distress, WD/WN HEENT: PERRL/EOMI, Moist Mucous Membranes Neck: Normal Inspection, Supple; No JVD, No Limited Range of Motion Respiratory: No Accessory Muscle Use, No Respiratory Distress, Rhonci Cardiovascular: Regular Rate, Rhythm, No Murmur Gastrointestinal: Normal Bowel Sounds, Non Tender, Soft Extremity: Normal Capillary Refill, No Calf Tenderness, No Pedal Edema Neurologic/Psychiatric: Alert, Oriented x3, No Motor/Sensory Deficits, Normal Mood/Affect Skin: Normal Color, Warm/Dry Results Results/Procedures Labs Laboratory Tests 02/03/18 10:20 Patient resulted labs reviewed. Imaging: Reviewed Imaging Films, Reviewed Imaging Report Assessment/Plan Admission Diagnosis Bilateral pneumonia Admission Status: Inpatient Order (span 2 midnights) Reason for Inpatient Admission: failed outpatient antibiotics Diagnosis/Problems Diagnosis/Problems (1) Pneumonia Status: Acute Assessment & Plan: Failed outpatient management Will continue on Levaquin blood cultures drawn yesterday during ER visit before antibiotics No sepsis criteria met Will add Mucinex Qualifiers: Pneumonia type: due to unspecified organism Laterality: bilateral Lung location: lower lobe of lung Qualified Codes: J18.1 - Lobar pneumonia, unspecified organism (2) Rectus sheath hematoma Status: Acute Assessment & Plan: s/p embolization at [facility] Qualifiers: Encounter type: subsequent encounter Qualified Codes: S30.1XXD - Contusion of abdominal wall, subsequent encounter (3) Elevated blood pressure reading Assessment & Plan: Elevated on arrival Will trend, may need to start on antihypertensives Clinical Quality Measures DVT/VTE Risk/Contraindication: Risk Factor Score Per Nursin RFS Level Per Nursing on Admit: 3=High EZEQUIEL GUZMAN MD February 03, 2018 15:27
[2018-02-03] MEDS: NS IV 1000 ML 1,000 ML IV SCH ×2 (15:28→20:31)
[2018-02-03] MEDS: RT-ALBUTEROL SULF 2.5 MG/3 ML PRE-MIX VIAL INH SCH ×2 (15:53→19:37)
[2018-02-03 16:00] VITALS: BP 172/83
[2018-02-03] MEDS ORDERED: MILK OF MAGNESIA 400 MG/5 ML 30 ML UDC PO PRN (16:00)
[2018-02-03] MEDS ORDERED: BENZONATATE 100 MG (TESSALON) CAPSULE PO PRN (16:00)
[2018-02-03] MEDS ORDERED: ANTACID SUSP 30 ML UDC (MYLANTA) PO PRN (16:00)
[2018-02-03] MEDS ORDERED: CHLORASEPTIC LOZENGE MM PRN (16:00)
[2018-02-03] MEDS ORDERED: MELATONIN 3 MG TABLET PO PRN (16:00)
[2018-02-03] MEDS ORDERED: ONDANSETRON 4 MG/2 ML (SDV) Z0FRAN IV PRN (16:00)
[2018-02-03] MEDS ORDERED: ACETAMINOPHEN 325 MG TABLET/CAPLET (TYLENOL) PO PRN (16:15)
[2018-02-03] MEDS ORDERED: RT-ALBUTEROL SULF 2.5 MG/3 ML PRE-MIX VIAL INH PRN (17:00)
[2018-02-03 20:07] VITALS: BP 163/63
[2018-02-03] MEDS: guaiFENesin (MUCINEX) 600 MG TAB PO SCH (20:25)
[2018-02-04] VITALS: BP 170/76
[2018-02-04] MEDS: NS IV 1000 ML 1,000 ML IV SCH (03:00)
[2018-02-04 04:00] VITALS: BP 139/75
[2018-02-04 06:20] LABS: BASOPHILS % (AUTO) 0 % (0-10); EOSINOPHILS % (AUTO) 1 % (0-10); HEMATOCRIT 28 % (40-54); HEMOGLOBIN 9.1 G/DL (13.3-17.7); LYMPHOCYTES # (AUTO) 0.9 X 10^3 (1.0-4.0); LYMPHOCYTES % (AUTO) 12 % (12-44); MEAN CORPUSCULAR HEMOGLOBIN 29 PG (25-34); MEAN CORPUSCULAR HGB CONC 33 G/DL (32-36); MEAN CORPUSCULAR VOLUME 88 FL (80-99); MEAN PLATELET VOLUME 11.5 FL (7.4-10.4); MONOCYTES % (AUTO) 14 % (0-12); NEUTROPHILS # (AUTO) 5.3 X 10^3 (1.8-7.8); NEUTROPHILS % (AUTO) 74 % (42-75); PLATELET COUNT 168 10^3/uL (130-400); RED BLOOD COUNT 3.14 10^6/uL (4.35-5.85); RED CELL DISTRIBUTION WIDTH 13.4 % (10.0-14.5); WHITE BLOOD COUNT 7.2 10^3/uL (4.3-11.0)
[2018-02-04] MEDS: RT-ALBUTEROL SULF 2.5 MG/3 ML PRE-MIX VIAL INH SCH ×4 (06:32→18:46)
[2018-02-04 06:58] LABS: BUN/CREATININE RATIO 10; CALCIUM 8.3 MG/DL (8.5-10.1); CARBON DIOXIDE 26 MMOL/L (21-32); CHLORIDE 102 MMOL/L (98-107); GFR ESTIMATED > 60; GLUCOSE 118 MG/DL (70-105); POTASSIUM 3.6 MMOL/L (3.6-5.0); SODIUM 137 MMOL/L (135-145)
[2018-02-04 08:00] VITALS: BP 174/86
[2018-02-04] MEDS: guaiFENesin (MUCINEX) 600 MG TAB PO SCH ×2 (08:48→20:03)
[2018-02-04] MEDS ORDERED: LEVOFLOXACIN 750 MG/150 ML IV 150 ML IV SCH (09:00)
[2018-02-04] MEDS: amLODIPine 5 MG (NORVASC) TAB PO SCH (10:54)
--- NOTE | 2018-02-04 11:05 | Progress Note-Hospitalist ---
Subjective HPI/CC On Admission Date Seen by Provider: February 04, 2018 Time Seen by Provider: 11:01 Pt is a 52yoCM with a PMH of recent rectus sheath hematoma that underwent embolization at [facility] on 02/01 who presented to the ER with CC of cough. His symptoms started on 01/28 with a sore throat and cough. His coughing worsened which is when he developed abdominal pain prompting him to seek evaluation in the ER where his hematoma was diagnosed. His cough never improved and he was not given antibiotics at [facility]. After being discharged on 02/02 he drove to the ER here for evaluation of his cough and was diagnosed with pneumonia. He was offered admission but elected to attempt going home instead. His symptoms worsened with cough and poor sleep so he returned to the ER and was admitted as he failed outpatient management. He denies any fevers but as been near multiple sick contacts with admission at . He has no history of lung disease. He has been using Nyquil and cough drops without improvement. Subjective/Events-last exam Pt reports feeling better and breathing better. Able to get up sputum now. Only complaint is that he has been unable to sleep. Objective Exam Vital Signs Vital Signs Date Time Temp Pulse Resp B/P (MAP) Pulse Ox O2 Delivery O2 Flow Rate FiO2 02/04/18 10:32 91 Room Air 02/04/18 08:00 98.3 84 20 174/86 (115) Capillary Refill : Less Than 3 Seconds General Appearance: No Apparent Distress, Obese Respiratory: No Respiratory Distress, Rhonci Cardiovascular: Regular Rate, Rhythm, No Murmur Gastrointestinal: Normal Bowel Sounds, Non Tender, Soft Extremity: No Calf Tenderness, No Pedal Edema Neurologic/Psychiatric: Alert, Oriented x3, Normal Mood/Affect Results/Procedures Lab Laboratory Tests 02/04/18 05:31 Patient resulted labs reviewed. Imaging: Reviewed Imaging Films, Reviewed Imaging Report Assessment/Plan Assessment and Plan Assess & Plan/Chief Complaint Pneumonia Diagnosis/Problems Diagnosis/Problems (1) Pneumonia Status: Acute Assessment & Plan: Failed outpatient management Continue on Levaquin BC NGTD Continue Mucinex Will get sputum culture MAT protocol Qualifiers: Pneumonia type: due to unspecified organism Laterality: bilateral Lung location: lower lobe of lung Qualified Codes: J18.1 - Lobar pneumonia, unspecified organism (2) Rectus sheath hematoma Status: Acute Assessment & Plan: s/p embolization at [facility] Qualifiers: Encounter type: subsequent encounter Qualified Codes: S30.1XXD - Contusion of abdominal wall, subsequent encounter (3) Elevated blood pressure reading Assessment & Plan: Remains elevated Will start Amlodipine (4) Prophylactic measure Assessment & Plan: Lovenox Saline Lock Reg diet Clinical Quality Measures DVT/VTE Risk/Contraindication: Risk Factor Score Per Nursin RFS Level Per Nursing on Admit: 3=High EZEQUIEL ACUÑA MD February 04, 2018 11:05 am
[2018-02-04] MEDS ORDERED: PROMETHAZINE/ CODEINE SYRUP 5 ML UDC PO PRN (11:15)
[2018-02-04] MEDS: ENOXAPARIN 40 MG/0.4 ML (LOVENOX) SYR SC SCH (11:43)
[2018-02-04 12:00] VITALS: BP 191/95
[2018-02-04 16:45] VITALS: BP 172/91
[2018-02-04 19:12] VITALS: BP 168/80
[2018-02-04] MEDS ORDERED: MELATONIN 3 MG TABLET PO SCH (21:00)
[2018-02-05 04:00] VITALS: BP 179/94
[2018-02-05 06:22] LABS: BASOPHILS % (AUTO) 0 % (0-10); EOSINOPHILS # (AUTO) 0.1 10^3/uL (0.0-0.3); EOSINOPHILS % (AUTO) 1 % (0-10); HEMATOCRIT 29 % (40-54); HEMOGLOBIN 9.6 G/DL (13.3-17.7); LYMPHOCYTES # (AUTO) 1.1 X 10^3 (1.0-4.0); LYMPHOCYTES % (AUTO) 13 % (12-44); MEAN CORPUSCULAR HEMOGLOBIN 29 PG (25-34); MEAN CORPUSCULAR HGB CONC 33 G/DL (32-36); MEAN CORPUSCULAR VOLUME 87 FL (80-99); MEAN PLATELET VOLUME 11.2 FL (7.4-10.4); MONOCYTES # (AUTO) 1.1 X 10^3 (0.0-1.0); MONOCYTES % (AUTO) 13 % (0-12); NEUTROPHILS # (AUTO) 6.1 X 10^3 (1.8-7.8); NEUTROPHILS % (AUTO) 73 % (42-75); PLATELET COUNT 214 10^3/uL (130-400); RED BLOOD COUNT 3.32 10^6/uL (4.35-5.85); RED CELL DISTRIBUTION WIDTH 13.9 % (10.0-14.5); WHITE BLOOD COUNT 8.3 10^3/uL (4.3-11.0)
[2018-02-05 06:38] LABS: BUN/CREATININE RATIO 13; CALCIUM 8.7 MG/DL (8.5-10.1); CARBON DIOXIDE 25 MMOL/L (21-32); CHLORIDE 103 MMOL/L (98-107); CREATININE SERUM 0.61 MG/DL (0.60-1.30); GFR ESTIMATED > 60; GLUCOSE 104 MG/DL (70-105); POTASSIUM 3.6 MMOL/L (3.6-5.0); SODIUM 138 MMOL/L (135-145)
[2018-02-05] MEDS: RT-ALBUTEROL SULF 2.5 MG/3 ML PRE-MIX VIAL INH SCH ×2 (07:53→11:16)
[2018-02-05 08:09] VITALS: BP 180/84
[2018-02-05] MEDS: amLODIPine 5 MG (NORVASC) TAB PO SCH (08:45)
[2018-02-05] MEDS: guaiFENesin (MUCINEX) 600 MG TAB PO SCH (08:45)
[2018-02-05] MEDS ORDERED: AMLO5TAB2 PO (08:53)
[2018-02-05] MEDS ORDERED: GUAI600T43 PO (08:53)
--- NOTE | 2018-02-05 09:00 | Discharge Summary-Hospitalist ---
Diagnosis/Chief Complaint Date of Admission February 03, 2018 at 10:55 am Date of Discharge Discharge Date: February 05, 2018 Admission Diagnosis Bilateral pneumonia Discharge Diagnosis Pneumonia (1) Pneumonia Status: Acute Assessment & Plan: Failed outpatient management Continue on Levaquin BC NGTD Continue Mucinex Will get sputum culture MAT protocol (2) Rectus sheath hematoma Status: Acute Assessment & Plan: s/p embolization at [facility] (3) Elevated blood pressure reading Assessment & Plan: Remains elevated Will start Amlodipine (4) Prophylactic measure Assessment & Plan: Lovenox Saline Lock Reg diet Discharge Summary Discharge Physical Exam Allergies: Coded Allergies: Penicillins (Unverified Allergy, Unknown, 01/31/18) Sulfa (Sulfonamide Antibiotics) (Verified Allergy, Unknown, 01/31/18) erythromycin base (Verified Allergy, Unknown, 01/31/18) Vitals & I&Os Vital Signs Date Time Temp Pulse Resp B/P (MAP) Pulse Ox O2 Delivery O2 Flow Rate FiO2 02/05/18 11:16 90 Room Air 02/05/18 08:09 97.6 81 16 180/84 (116) General Appearance: Alert, Oriented X3 Respiratory: Clear to Auscultation Cardiovascular: Regular Rate Hospital Course Pt admitted for failed outpatient treatment of pneumonia. He was treated with IV antibiotics and symptoms improved significantly by discharge. He is to complete his Levaquin course with the prescription that he filled on his original ER visit. He does not have an primary care doctor but was given numbers for local physicians in [facility] to establish care with as he will need to follow up on his HTN and anemia. I did discuss the need for a colonoscopy with him but he declined. I advised him to inquire about Cologard when he does establish with a PCP. He was started on Amlodipine for his BP. Labs (last 24 hrs) Laboratory Tests 02/05/18 05:50: White Blood Count 8.3, Red Blood Count 3.32L, Hemoglobin 9.6L, Hematocrit 29L, Mean Corpuscular Volume 87, Mean Corpuscular Hemoglobin 29, Mean Corpuscular Hemoglobin Concent 33, Red Cell Distribution Width 13.9, Platelet Count 214, Mean Platelet Volume 11.2H, Neutrophils (%) (Auto) 73, Lymphocytes (%) (Auto) 13 , Monocytes (%) (Auto) 13H, Eosinophils (%) (Auto) 1, Basophils (%) (Auto) 0, Neutrophils # (Auto) 6.1, Lymphocytes # (Auto) 1.1, Monocytes # (Auto) 1.1H, Eosinophils # (Auto) 0.1, Basophils # (Auto) 0.0, Sodium Level 138, Potassium Level 3.6, Chloride Level 103, Carbon Dioxide Level 25, Anion Gap 10, Blood Urea Nitrogen 8, Creatinine 0.61, Estimat Glomerular Filtration Rate > 60, BUN/ Creatinine Ratio 13, Glucose Level 104, Calcium Level 8.7 Microbiology 02/03/18 Gram Stain - Final, Complete 02/03/18 Sputum Culture - Final, Complete Usual/normal annette isolated. Patient resulted labs reviewed. Pending Labs Imaging: Reviewed Imaging Films, Reviewed Imaging Report Discussion & Recommendations Discharge Planning: >30 minutes discharge planning Discharge Home Medications: Active Scripts Active Mucinex (Guaifenesin) 600 Mg Tab.er.12h 600 Mg PO BID Amlodipine Besylate 5 Mg Tablet 5 Mg PO DAILY Reported Fluticasone Propionate 16 Gm Archer.susp 2 Sprays NS DAILY Tramadol HCl 50 Mg Tablet 50 Mg PO Q6H PRN Benzonatate 100 Mg Capsule 100 Mg PO TID PRN Levofloxacin 750 Mg Tablet 750 Mg PO DAILY 6 Days 6 DAY SUPPLY FILLED 02-02-18 [place] [employer] (Ascorbic Acid) 60 Mg Lozenge 60 Mg PO UD PRN Cepacol Sore Throat Lozenge (Benzocaine/Menthol) 1 Each Lozenge 1 Geremias MM UD PRN Instructions to patient/family Please see electronic discharge instructions given to patient. Clinical Quality Measures DVT/VTE Risk/Contraindication: Risk Factor Score Per Nursin RFS Level Per Nursing on Admit: 3=High Copy Copies To 1: ASAD RAO MD Problem Qualifiers (1) Pneumonia: Pneumonia type: due to unspecified organism Laterality: bilateral Lung location: lower lobe of lung Qualified Codes: J18.1 - Lobar pneumonia, unspecified organism (2) Rectus sheath hematoma: Encounter type: subsequent encounter Qualified Codes: S30.1XXD - Contusion of abdominal wall, subsequent encounter EZEQUIEL ACUÑA MD February 05, 2018 09:00
[2018-02-05] MEDS: ENOXAPARIN 40 MG/0.4 ML (LOVENOX) SYR SC SCH (10:51)
[2018-02-05] MEDS ORDERED: LEVOFLOXACIN 750 MG TAB (LEVAQUIN) PO SCH (11:00)
== END 2018-02-05 13:45 | disposition home or self-care (01) | DRG 195 ==
LOC: EDUNIT# 09:40 → ER 09:41 → 4TH 10:55
PROVIDERS: ADMIT Family Medicine; ATTEND Family Medicine
DX: J18.9 Pneumonia, unspecified organism (principal); Z87.891 Personal history of nicotine dependence; S30.1XXD Contusion of abdominal wall, subsequent encounter; I10 Essential (primary) hypertension
CPT/HCPCS: 36415; 71046; 80048; 80053; 83605; 85025; 86141; 87040; 87070; 87205; 87804; 94640; 94664; 94760; 96361; 96365; 96375

== ENCOUNTER → 2018-02-22 | Outpatient (CLI) | payer BC ==
[~2018-02-22] VITALS: Ht 175.3 cm; Wt 138.8 kg
[~2018-02-22] MED LIST changes: +AMLO5TAB2 PO; +ASCO60LO9 PO; +BENZ-36 PO; +BENZ1LOZ61 MM; +FLUT16SP22 NS; +GUAI600T43 PO; +KETO10TA PO; +LEVO750T39 PO; +TRAM50TA2 PO
[2018-02-22 10:15] VITALS: BP 155/101
[2018-02-22 11:34] VITALS: BP 149/100
--- NOTE | 2018-02-22 11:41 | Diagnostic Imaging Report ---
INDICATION: Status post left thoracentesis. TIME OF EXAMINATION: 01:44 a.m. COMPARISON: Correlation is made with prior study from 02/03/2018. FINDINGS: The heart size is stable. There is subsegmental atelectasis in left base. A small left effusion is noted. No pneumothorax is seen status post thoracentesis. IMPRESSION: No evidence of pneumothorax, status post thoracentesis. Dictated by: Dictated on workstation # [id number]
--- NOTE | 2018-02-22 12:48 | Diagnostic Imaging Report ---
Indication: Left pleural effusion. Sonographic guidance was provided for Dr. Blanco for a left-sided thoracentesis. Images demonstrate a large left effusion. Post procedure image demonstrates significant reduction in left-sided pleural effusion. Impression: Sonographic guidance for Dr. Blanco for a left thoracentesis. Dictated by: Dictated on workstation # [id number]
[2018-02-22 13:20] LABS: GLUCOSE,BODY FLUID 88 MG/DL; LDH,BODY FLUID 648 U/L; TOTAL PROTEIN,BODY FLUID 4.5 G/DL
[2018-02-22 13:45] LABS: BF OTHER CELLS 47 %; BODY FLUID APPEARENCE MKD BLDY; BODY FLUID COLOR RED; BODY FLUID RBC COUNT 764000 /uL; BODY FLUID SOURCE THORACEN; BODY FLUID WBC TOTAL COUNT 4000 /uL; LYMPHOCYTES,BODY FLUID 40 %
--- NOTE | 2018-02-22 20:59 | OPERATIVE REPORT ---
DATE OF SERVICE: 02/22/2018 PREOPERATIVE DIAGNOSIS: Left pleural effusion. POSTOPERATIVE DIAGNOSIS: Left pleural effusion, pending pathology. PROCEDURE: Ultrasound-guided thoracentesis of left pleural effusion. SURGEON: Khris Blanco DO PELT DROPPER: None. ANESTHESIA: Just local lidocaine. BLOOD LOSS: Scant. FLUIDS: None. SPECIMEN: 1800 mL of dark reddish fluid sent to pathology for cell count, cultures and cytology. INDICATION FOR PROCEDURE: The patient is a 52-year-old male who had diagnosed with pneumonia and then a pleural effusion did not go away. States that he had had some type of procedure through his groin to do an embolization of some kind of bleeding in his abdomen 3 weeks ago and this has been going on since then. FINDINGS: The patient had 1800 mL of serosanguineous fluid. He did get some relief of breathing once this fluid was off. PROCEDURE NOTE: After informed consent was obtained, the patient was in the radiology procedure room, seen in the bed resting on a table. Ultrasound to check to find the best place for the most fluid and no lung around this. Thus, he was then sterilely prepped and draped in normal fashion. Local lidocaine was used to infiltrate the skin to create a wheal as well as down to the rib infiltrated along this with local and then a small stab incision made with 11 blade and advanced the thoracentesis catheter over a trocar with negative inspiration, felt it gently pop into the lung, confirmed with the ultrasound, which was also sterile with a cover and immediately got a serosanguineous fluid, removed the trocar portion of the catheter further in and then hooked this up to negative inspiration canister and got out 1800 mL of dark serous fluid. The patient started getting some little better breathing and then this was removed. Dressing placed. Postoperative x-rays showed no pneumothorax. The patient was then transferred home in stable condition. Job ID: [id number] DocumentID: [id number] Dictated Date: 02/22/2018 13:59:33 [employer] Date: 02/22/2018 18:54:24 Dictated By: KHRIS BLANCO DO [facility]
== END ==
LOC: SDC 09:43
PROVIDERS: ATTEND Surgery
DX: J90 Pleural effusion, not elsewhere classified (principal)
CPT/HCPCS: 32555; 71045; 82570; 82945; 83615; 84157; 87070; 87075; 87101; 87205; 88112; 88305; 88341; 88342; 88344; 89051